=== PATIENT | female | born 1955 | race Caucasian/White ===

== ENCOUNTER 2019-04-06 19:05 | Emergency (ER) | payer OTHER, BC, SELFPAY ==
[2019-04-06 19:07] VITALS: BP 156/72; PULSE 77; RESP 18; TEMP 36.5; O2SAT 98; BMI 39.4
--- NOTE | 2019-04-06 19:15 | RAD_ITS ---
STUDY: X-RAY - LEFT WRIST REASON FOR EXAM: Female, 63 years old. Trauma 3 TECHNIQUE: 3 view(s) of the wrist were obtained. COMPARISON: None. FINDINGS: The bones of the wrist are intact and located. Mineralization is normal. Soft tissues are intact. RAD/Wrist min 3 Views IMPRESSION: 1. Unremarkable wrist. Electronically Signed: Kennedi Eden, at 19:50 EST Tel , Service support ,
--- NOTE | 2019-04-06 19:15 | RAD_ITS ---
STUDY: X-RAY - LEFT RADIUS AND ULNA REASON FOR EXAM: Female, 63 years old. Trauma TECHNIQUE: 2 view(s) of the forearm. COMPARISON: None. FINDINGS: Radius and ulna are intact and located. Mineralization is normal. Soft tissues are unremarkable. RAD/Forearm 2 Views IMPRESSION: 1. Unremarkable forearm. Electronically Signed: Kennedi Eden, at 19:49 EST Tel , Service support ,
--- NOTE | 2019-04-06 19:24 | ED.RN ---
PATIENT REPORTS SHE WILL LET US KNOW IF SHE DECIDES TO CLAIM THIS A WORKERS COMP. 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
--- NOTE | 2019-04-06 19:47 | ED.VIS.UPPEX ---
History of Present Illness Chief Complaint: Upper Extremity Injury Informant: Patient Occurred: Today Mechanism/Context: Slip, Trip Onset: Today Associated Symptoms: Negative for: Parasthesia, Weakness, Loss of Funtion Narrative: Patient is a 63-year-old female with history of insulin-dependent diabetes mellitus presenting with left wrist pain. Patient slipped on ice and caught herself earlier today. She caught herself with her left hand and is continued to have pain over the dorsal aspect of her distal forearm/wrist. The pain is slightly worsened so she came in. She has associated swelling. She denies any numbness tingling or weakness of the hand. She is right-hand dominant. She took Aleve about 4 hours prior to arrival. She denies any other complaints at this time. Past Medical History - Allergies and Home Meds Allergies/Adverse Reactions: Allergies codeine Adverse Reaction (Verified 11/12/16 21:55) Other Primary Care Physician: Zahira Cheng, FINESSE-C [NON-STAFF] - Past Medical History: - - Diabetes mellitus Surgical History: noncontributory Smoking Status: Never smoker Review of Systems General: Denies: Chills, Fever, Sweats Eyes: Denies: Visual changes - bilaterally, Diplopia ENT: Denies: Rhinorrhea, Sore throat Cardiovascular: Denies: Chest pain, Palpitations Respiratory: Denies: Dyspnea, Cough, Dyspnea on exertion Gastrointestinal: Denies: Abdominal pain, Nausea, Vomiting, Diarrhea, Melena, Hematochezia Genitourinary: Denies: Dysuria, Hematuria, Frequency Musculoskeletal: Reports: Swelling - Left wrist, Extremity Pain - Left wrist. Denies: Back pain Skin: Denies: Rash, Wounds Neurological: Denies: Headache, Weakness, Numbness Physical Exam Vital Signs/Narrative: Vital Signs Temp Pulse Resp BP Pulse Ox 04/06/19 19:07 97.7 F L 77 18 156/72 H 98 Inital Vital Signs reviewed: Yes Left Elbow: Negative for: Abrasion, Contusion, Deformity, Edema, Hematoma, Limited ROM Left Forearm: - - No tenderness palpation over the dorsal aspect of the distal wrist with some mild soft tissue swelling. No bony tenderness appreciated. No ecchymosis appreciated. Negative for: Contusion, Deformity, Edema, Limited ROM Left Wrist: -. Negative for: Contusion, Deformity, Hematoma, Limited ROM Left Hand: - - No snuffbox tenderness. Negative for: Contusion, Deformity, Hematoma, Limited ROM General: Well nourished, Well developed, Obese Head: Normocephalic, Atraumatic Eyes: Perrl, EOMI ENT: No Trauma, Moist Mucous Membranes Cardiovascular: Regular rate, Regular rhythm, No murmurs Respiratory: No distress, CTA bilaterally, Chest nontender Skin: Normal color, No rash Neurological: Alert, Oriented x3, Cranial nerves II-XII grossly intact, Normal Strength, Normal Sensation. Negative for: Parasthesia, Weakness Diagnostic/Tx/Re-eval Clinical Impression(s) from Imaging Studies Forearm X-Ray 04/06/19 19:15 IMPRESSION: 1. Unremarkable forearm. Electronically Signed: Reshmasemaj Meek, at 19:49 EST Tel , Service support , Wrist X-Ray 04/06/19 19:15 IMPRESSION: 1. Unremarkable wrist. Electronically Signed: Kennedi Eden, at 19:50 EST Tel , Service support , - Medical Decision Making Patient is evaluated for left wrist pain after mechanical fall. She not have any other injuries. She not have any obvious deformity. She does have some soft tissue pain and swelling. X-rays not show any acute fracture. Patient be placed in a splint for comfort. After I evaluate her she then says that she would like to file Workmen's Comp. case. Who work is followed for this. Patient is counseled on symptomatic treatment including NSAIDs, Tylenol and ice. Likely this is a soft tissue injury. She will follow-up with her primary care doctor or now clinic as needed. ED Disposition - Plan for ED Patient: Disposition: Home or Assisted Living Diagnosis: Left wrist injury Instructions: Wrist Sprain Referrals: Zahira Cheng NP-C [NON-STAFF] - Additional Instructions: Alternate Tylenol and ibuprofen for pain. Wear splint as needed for comfort. Return the emergency room with any worsening symptoms including weakness or significantly worsening pain. Follow-up with primary care doctor in a week to 10 days if no improvement. You might need a repeat x-ray at that point. Does not look like you have acute fracture/broken bone at this time.
[2019-04-06] MEDS: Acetaminophen 500 MG Tablet 1000 MG PO (19:55)
[2019-04-06] MEDS: Ibuprofen 600 MG Tablet PO (19:55)
--- NOTE | 2019-04-06 20:06 | ED.RN ---
PT SPOKE WITH REPATCHER AND WAS TOLD TO CLAIM INJURY WORKERS COMP. PER REPATCHER, NO DRUG TESTING IS REQUIRED. FROI GIVEN TO PATIENT TO FILL OUT AND MADE AWARE.
[2019-04-06 20:31] VITALS: PULSE 77; RESP 18; O2SAT 98
== END 2019-04-06 20:31 | disposition home or self-care (01) ==
PROVIDERS: Emergency Provider Emergency Medicine; PCP Family Medicine
DX: S69.92XA Unspecified injury of left wrist, hand and finger(s), initial encounter (principal); W00.0XXA Fall on same level due to ice and snow, initial encounter; Y93.9 Activity, unspecified; Y92.9 Unspecified place or not applicable; Y99.0 Civilian activity done for income or pay; E11.9 Type 2 diabetes mellitus without complications; Z79.4 Long term (current) use of insulin; Z79.84 Long term (current) use of oral hypoglycemic drugs
CPT/HCPCS: 73090; 73110; 99284